=== PATIENT | male | born 1945 | race Caucasian/White ===

== ENCOUNTER 2016-12-06 07:38 | Inpatient (IN) | payer OTHER ==
[~2016-12-06] VITALS: Ht 160 cm; Wt 87.7 kg
[~2016-12-06 07:38] MED LIST: AMITRIPTYLINE H10 MG; AMITRIPTYLINE H25 MG PO; APAP/HYDROCODON1 T13 PO; BACTRIM DS1 TAB PO; BENADRYL ALLERG25 M1 PO; CARBAMAZEPINE100 MG PO; CIPRO500 MG PO; CLINDAMYCIN HC300 MG PO; COL100 PO; COL250 PO; COLACE100 MG PO; FLA500 PO; FLO4 PO; GAS RELIEF40 MG/0.6 PO; LAC PO; LACTULOSE10 GM/152 PO; LEVAQUIN750 MG/150 IV; LOMOTIL1 TAB PO; NORCO1 TA2 PO; PRI20 PO; TYLENOL EXTRA500 M2 PO; VAN1PM IV; XANAX0.5 MG PO; ZOLOFT25 MG PO
[2016-12-06 08:20] LABS: PLATELET COUNT 261 x10^3mcL (130-400); RED CELL DISTRIBUTION WIDTH 13.3 % (11.5-14.5)
--- NOTE | 2016-12-06 08:40 | NUR ---
PT PRESENTS TO THE ED WITH THE COMPLAINT OF N/V HIS PRIMARY COMPLAINT. THE PT REPORTS TAKING MULTIPLE TYLENOL PILLS TO HELP HIS PAIN. THE PT REPORTS TAKING 5 TABS YESTERDAY AT 1700, 4 TABS AT 2100, 4 TABS TODAY AT 0200, AND 4 TABS AT 0500. ALL THE TABS WERE 500 MG. POISON CONTROL CALLED.
[2016-12-06 08:42] LABS: CALCIUM 8.9 mg/dL (8.5-10.1); CARBON DIOXIDE 25.9 mmol/L (21-32); CHLORIDE SERUM 103 mmol/L (98-107); CREATININE SERUM 0.9 mg/dL (0.7-1.3); GFR1 > 60 mL/min; GLUCOSE SERUM 122 mg/dL (74-106); POTASSIUM SERUM 3.3 mmol/L (3.5-5.1); SODIUM SERUM 139 mmol/L (136-145)
[2016-12-06 08:46] LABS: ALBUMIN 4.1 g/dL (3.4-5.0); ALKALINE PHOSPHATASE 73 U/L (46-116); ALT/SGPT 37 U/L (16-63); AST/SGOT 22 U/L (15-37); BILIRUBIN TOTAL 0.52 mg/dL (0.20-1.00); TOTAL PROTEIN, SERUM 7.6 g/dL (6.4-8.2)
--- NOTE | 2016-12-06 09:07 | NUR ---
PT AMBULATED TO AND FROM THE RESTROOM WITH STEADY GAIT TO PROVIDED ORDERED URINE SPECIMEN.
[2016-12-06 09:27] LABS: microscopic required? YES; urine erythrocyte NEGATIVE (NEGATIVE)
--- NOTE | 2016-12-06 10:17 | NUR ---
PT REMAINS RESTING IN A POSITION OF COMFORT IN LOW POSITIONED BED WITH SIDE RAILS UP X 2 AND CALL LIGHT WITHIN REACH.
[2016-12-06 10:39] LABS: BAND NEUTROPHIL 0 % (0-10); BASOPHIL 0 % (0-2); MONOCYTE 6 % (0-7); SEGMENTED NEUTROPHILS 86 % (37-75)
[2016-12-06 10:41] LABS: PLATELET MORPHOLOGY PLATELETS NORMAL
--- NOTE | 2016-12-06 12:03 | NUR ---
REPORT CALLED TO CONSTANTINE BRIONES TO ASSUME CARE FOR THIS PT POST TRAMSFER FROM ED TO TELE UNIT.
[2016-12-06] MEDS ORDERED: TEGRETOL200 MG PO (12:50)
[2016-12-06] MEDS ORDERED: HYDROXYZINE HYD25 MG PO (12:50)
[2016-12-06 13:04] LABS: CHOLESTEROL/HDL RATIO 2.8
[2016-12-06 13:05] LABS: T3 TOTAL 0.96 ng/mL
[2016-12-06 13:12] LABS: FREE T4 0.93 ng/dL (0.76-1.46); FREE THYROXINE INDEX 2.4 ug/dL (1.4-4.5); T4(THYROXINE) 7.3 ug/dL (4.7-13.3)
--- NOTE | 2016-12-06 13:15 | NUR ---
Received patient from ED via gurney, patient walking to bed with steady gait, oriented patient to call light system, pain is 5/10 to bilateral legs; noted bilateral lateral thigh bleeding from wound site; updated POC.
[2016-12-06 14:12] VITALS: BP 139/77
--- NOTE | 2016-12-06 15:52 | NUR ---
PATIENT LAYING IN BED TECH AT BEDSIDE PREFORM XR TO BILAT THIGH. ZOFRAN 4MG IVP GIVEN. NEEDS ANTICIPATED.
--- NOTE | 2016-12-06 18:08 | NUR ---
PATIENT SIT AT THE SIDE OF BED EATING HIS DINNER NO COMPLAINT, PAIN IS LIKE 4/10 TO RT THIGH; DUE MEDS GIVEN. NEEDS ANTICIPATED.
[2016-12-06 18:12] VITALS: BP 114/87
--- NOTE | 2016-12-06 18:35 | NUR ---
MEDICATED PATIENT FOR RT THIGH 6/10 PAIN WITH MORPHINE 2MG IVP, COLLECT URINE FOR USD. NEEDS ANTICIPATED.
--- NOTE | 2016-12-06 19:10 | NUR ---
PATIENT RECEIVED AWAKE, ALERT, AND ORIENTED X 4. NO DISTRESS NOTED. NO C/O PAIN AT THIS TIME. IV SITE TO LEFT HAND, PATENT AND INTACT. IV FLUID INFUSING PER DOCTOR'S ORDER. BED IN LOWEST POSITION. CALL LIGHT WITHIN REACH. WILL CONTINUE TO MONITOR.
--- NOTE | 2016-12-06 19:30 | NUR ---
LEFT OUTER THIGH AND RIGHT OUTER THIGH WOUND CULTURE SENT.
[2016-12-06 21:14] VITALS: BP 129/73
[2016-12-06 21:46] LABS: AMPHETAMINE QUAL UR NONE DETECTED (NEG <=1000)
--- NOTE | 2016-12-07 05:00 | NUR ---
PATIENT RESTED THROUGHOUT THE NIGHT. NO DISTRESS NOTED. NO C/O PAIN. SAFETY AND COMFORT MEASURES MAINTAINED. BED IN LOWEST POSITION. CALL LIGHT WITHIN REACH. WILL CONTINUE TO MONITOR AND ENDORSE TO MORNING SHIFT NURSE.
[2016-12-07 06:30] VITALS: BP 140/77
[2016-12-07 07:01] LABS: BASOPHIL % 0.3 % (0-2); PLATELET COUNT 246 x10^3mcL (130-400); RED CELL DISTRIBUTION WIDTH 13.3 % (11.5-14.5)
[2016-12-07 07:14] LABS: CALCIUM 7.9 mg/dL (8.5-10.1); CARBON DIOXIDE 26.3 mmol/L (21-32); CHLORIDE SERUM 105 mmol/L (98-107); GFR1 > 60 mL/min; GLUCOSE SERUM 103 mg/dL (74-106); MAGNESIUM 1.7 mg/dL (1.8-2.4); PHOSPHOROUS 2.6 mg/dL (2.5-4.9); POTASSIUM SERUM 3.3 mmol/L (3.5-5.1); SODIUM SERUM 140 mmol/L (136-145)
--- NOTE | 2016-12-07 07:25 | NUR ---
Received patient remain asleep awake easily, denies pain, IV intact, bilat lateral thigh with dressing C/D/I; POC updated. Needs anticipated.
[2016-12-07 09:26] VITALS: BP 148/80
--- NOTE | 2016-12-07 09:45 | NUR ---
PATIENT REMAIN UP IN CHAIR, MEDICATED FOR 6/10 THIGH PAIN WITH NORCO 1 TAB PO, AND DUE MEDS GIVEN. NEEDS ANTICIPATED.
--- NOTE | 2016-12-07 10:30 | NUR ---
Patient remain sit in chair no complaints, hibiclens wash to bilateral legs and bactroban ointment to effected area. Consent for incision and drainage of abscess to left thigh and right thigh sign by patient no further questions. Needs anticipated. Update patient plan for surgery tomorrow.
--- NOTE | 2016-12-07 11:21 | NUR ---
Call Dr. Soliz clarify order for incision and drainage of abscess; per Dr. Soliz will be done tomorrow with Dr. Manjit FONTANEZ cancelled today.
--- NOTE | 2016-12-07 11:25 | NUR ---
KCL 20MEQ PO AND MAGOX 1 TAB PO GIVEN ORDERED FOR K 3.3 AND MG 1.7; PATIENT REMAIN UP IN CHAIR NO COMPLAINTS.
--- NOTE | 2016-12-07 12:47 | NUR ---
PATIENT UP IN CHAIR EATING HIS LUNCH, NO COMPLAINTS. DUE MEDS GIVEN. NEEDS ATTENDED. CONT TO MONITOR.
[2016-12-07 13:01] VITALS: BP 134/73
--- NOTE | 2016-12-07 14:52 | NUR ---
structural engineering technician call inform wound culture of left and right thigh (+) MRSA. Will notified
--- NOTE | 2016-12-07 15:26 | NUR ---
CARE ENDORSE TO [facility]AB[facility]CH TO RESUME CARE.
--- NOTE | 2016-12-07 15:30 | NUR ---
RECEIVED REPORT FROM ANALI FITCH, WILL ASUME CARE OF PATIENT.
--- NOTE | 2016-12-07 16:12 | NUR ---
BLOOD INFUSION STARTED, CHECKED BLOOD WITH RN SURU, VSS, LING RN USED FOR TRANSLATION OF SYMPTOMS, WILL REMAIN AT BEDSIDE TO ASSESS.
--- NOTE | 2016-12-07 16:43 | NUR ---
PT ASLEEP, NO INDICATION OF PAIN, BREATHING EVEN AND UNLABORED, CALL LIGHT WITHIN REACH, WILL CONTINUE TO MONITOR.
--- NOTE | 2016-12-07 16:51 | NUR ---
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 Alejandre (January 2016) Labs: K 3.3 L, BG 103, Magnesium 1.7 L; (12/07) WBC 11.4 H, H/H 12.2/37 L; (12/06) LDL 102 H, A1C 5.6 Meds: Colace, lactinex, NS IV, zofran Current Diet Order: Cardiac PO Intakes: (12/07) B: 10%, L: 100% Ht: 63", 5' 3". Wt: 191 lb, 87 kg. BMI: 34.3 kg/m2 (Obesity Class I) IBW: 124 lb, 56 kg. %IBW: 155%. Adj BW: 141 lb, 64 kg. UBW: 189 lb, 86 kg. Wt Hx: (11/28/15) 180 lb, 82 kg. Age: 71 Y/O M Food Allergies: None; Reported intolerance to milk, ice-cream, orange juice, grape juice Skin: Round open wounds to bilateral thighs, bloody in appearance, minimal drainage. Migel 20. Edema: None GI: Active bowel sounds. Last BM 12/06. Nursing Trigger: Nausea, Vomiting, Diarrhea >3 days. 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 Per doctor's progress note 12/07, bedside I&D will be performed today and culture of abscess sent to lab for culture and sensitivity, US soft tissue shows hematoma vs abscess. Per nursing notes, wound culture of L and R thigh positive MRSA, I&D will be done by Dr. Alejandre 12/08. Pt was sound asleep and snoring during RD visit, unable to participate in RD verbal interview. Pt appears overly-nourished, consistent with documented anthropometrics. Noted pt with good PO intakes for lunch meal. RD to obtain food preferences at F/U visit. Estimated Nutritional Needs Based IBW 124 lb, 56 kg Energy: 9782-4166 kcal/day (25-30 kcal/kg for Maintenance) Protein: 67-84 gm/day (1.2-1.5 gm/kg for Infection) Fluids: 1680 ml/day (30 ml/kg for Maintenance) or per doctor Nutrition Diagnosis Increase protein needs related to altered skin integrity as evidenced by bilateral thigh cellulitis secondary to MRSA infection, bedside I&D 12/08 Intervention 1. Continue Cardiac diet per doctor. Monitor/Evaluate Goal: PO intakes to meet >75% of estimated needs with tolerance Monitor: PO intakes, tolerance to diet, labs, skin integrity, GI function, weights F/U in 3-5 days as MODERATE risk (12/10-12/12)
--- NOTE | 2016-12-07 17:37 | NUR ---
PT DENIES SOB, C/O RLE PAIN 12/01, WILL MEDICATE PER EMAR, CALL LIGHT WITHIN REACH, EATING DINNER, WILL CONTINUE TO MONITOR.
[2016-12-07 17:50] VITALS: BP 125/55
--- NOTE | 2016-12-07 18:02 | NUR ---
PT MEDICATED FOR RLE PAIN 12/01, DENIES SOB, CALL LIGHT WITHIN REACH, WILL CONTINUE TO MONITOR.
--- NOTE | 2016-12-07 19:10 | NUR ---
REC'D PT RESTING IN BED. PT IS AAOX4. TELE #22 SR. DENIES PAIN OR DISCOMFORT. LUNG SOUNDS CLEAR. NO SOB NOTED. BS ACTIVE X4. WOUNDS NOTED TO NADIA. THIGHS, CUPOLA PATCHER. IV FLUID INFUSING TO LH PER DOCTOR'S ORDER. INTACT AND PATENT. SAFETY AND COMFORT MEASURES IN PLACE. CONTACT PRECAUTION IN PLACE FOR + MRSA WOUND. BED IN LOWEST POSITION. CALL LIGHT WITHIN REACH. WILL CONTINUE TO MONITOR.
[2016-12-07 21:29] VITALS: BP 123/67
--- NOTE | 2016-12-07 23:15 | NUR ---
PATIENT REQUESTED SLEEPING MEDICATION. RESTORIL WAS GIVEN ORDERED (SEE MAR).
--- NOTE | 2016-12-08 05:06 | NUR ---
PATIENT RESTING IN BED. NO DISTRESS NOTED. IV FLUID INFUSING WELL. CALL LIGHT WITHIN REACH. WILL CONTINUE TO MONITOR.
[2016-12-08 06:03] LABS: BASOPHIL % 0.3 % (0-2); PLATELET COUNT 233 x10^3mcL (130-400); RED CELL DISTRIBUTION WIDTH 13.2 % (11.5-14.5)
[2016-12-08 06:24] VITALS: BP 129/68
[2016-12-08 06:29] LABS: CALCIUM 7.9 mg/dL (8.5-10.1); CARBON DIOXIDE 25.9 mmol/L (21-32); CHLORIDE SERUM 106 mmol/L (98-107); GFR1 > 60 mL/min; GLUCOSE SERUM 102 mg/dL (74-106); MAGNESIUM 1.7 mg/dL (1.8-2.4); POTASSIUM SERUM 3.5 mmol/L (3.5-5.1); SODIUM SERUM 141 mmol/L (136-145)
--- NOTE | 2016-12-08 06:56 | NUR ---
REPORT GIVEN TO MARIOLA FROM OR. ALL QUESTIONS AND CONCERNS ADDRESSED.
--- NOTE | 2016-12-08 07:45 | NUR ---
RECEIVED THE PATIENT ALERT AND ORIENTED TO PERSON, PLACE AND TIME. PATIENT STATED HAVING MILD ACHING TO BOTH THIGH CELLULITIS. IVF NS VIA H/L TO LEFT HAND. TELE # 22 READS SINUS RHYTHMS. CALL LIGHT WITHIN REACH.S SIDE RAILS UP X3. BED WAS AT LOWEST POSITION AND ALARM WAS ON.
--- NOTE | 2016-12-08 08:20 | NUR ---
THE PATIENT WAS TAKEN TO OR FOR I&D BOTH THIGH CELLULITIS.
[2016-12-08 11:20] VITALS: BP 123/70
--- NOTE | 2016-12-08 12:15 | NUR ---
RECEIVED THE PATIENT BACK FROM RECOVERY ROOM S/P I&D BOTH THIGH CELLULITIS. THE PATIENT ALERT AND ORIENTED TO PERSON, PLACE AND TIME. PATIENT STATED HAVING MILD PAIN TO THE SURGICAL SITES TO BOTH THIGHS BUT TOLERATED THE PAIN AND DID NOT NEED PAIN MED. VS CHECKED. CALL LIGHT WITHIN REACH. SIDE RAILS UP X3. I.S DEVICE PROVIDED TO THE PATIENT.
[2016-12-08 14:04] VITALS: BP 108/66
[2016-12-08 18:21] VITALS: BP 104/71
--- NOTE | 2016-12-08 18:49 | NUR ---
THE PATIENT GOT OUT OF BED; USED BRP AND SAT IN CHAIR SEVERAL TIMES S/P I& D OF NADIA THIGH CELULLITIS.
--- NOTE | 2016-12-08 19:10 | NUR ---
REC'D PT RESTING IN BED. PT IS AAOX4. TELE #23 SR. LUNG SOUNDS CLEAR. NO SOB NOTED. SWELLING NOTED TO BILATERAL THIGHS. PT S/P I&D OF BILATERAL THIGH WOUNDS TODAY. DRESSING CDI. PT COMPLAIN OF 5/10 NADIA. THIGH PAIN. WILL MEDICATE. IV FLUID INFUSING TO LH PER DOCTOR'S ORDER. INTACT AND PATENT. SAFETY AND COMFORT MEASURES IN PLACE. BED IN LOWEST POSITION. CALL LIGHT WITHIN REACH. WILL CONTINUE TO MONITOR.
--- NOTE | 2016-12-08 19:16 | NUR ---
MEDICATED PT WITH NORCO FOR 5/10 BILATERAL THIGH PAIN (SEE MAR).
--- NOTE | 2016-12-08 19:25 | NUR ---
TELE DC'D ORDERED.
[2016-12-08 21:13] VITALS: BP 113/65
[2016-12-09 05:16] VITALS: BP 116/68
[2016-12-09 05:56] LABS: BASOPHIL % 0.2 % (0-2); PLATELET COUNT 254 x10^3mcL (130-400); RED CELL DISTRIBUTION WIDTH 13.6 % (11.5-14.5)
--- NOTE | 2016-12-09 07:50 | NUR ---
RESUME CARE: PATIENT ALERT AND ORIENTED TO PERSON, PLACE AND TIME. DENIED SHORTNESS OF BREATH OR NAUSEA/VOMITING. PATIENT STATED HAVING MILD ACHING TO BOTH THIGHS AT THE WOUND SITES, BUT TOLERATED THE PAIN WITHOUT PAIN MEDS. BOTH SITES WITH DRESSING INTACT. IVF NS VIA H/L TO LEFT HAND. CALL LIGHT WITHIN REACH. SIDE RAILS UP X3.
--- NOTE | 2016-12-09 09:19 | NUR ---
DR. FREED AND THE TEAM WERE MAKING ROUND TO SEE THE PATIENT. THE CARE PLAN WAS EXPLAINED TO THE PATIENT IN [place] VIA THE ROLLING MACHINE TENDER, ONE OF A MEDICAL STAFF; THE PATIENT VERBALIZED UNDERSTANDING.
[2016-12-09 10:09] VITALS: BP 128/78
--- NOTE | 2016-12-09 11:30 | NUR ---
PER DR. ROSALES-RESIDENT, REMOVE THE PACKING IN THE THIGH WOUNDS, CLEANSE THE WOUNDS AND APPLY THE BACTROBAN CREAM BEFORE APPLYING THE DRESSING. THESE STEPS ABOVE WERE IMPLEMENTED DURING DRESSING CHANGE TODAY AND INSTRUCTED TO THE , JAXON RIGGS AT BEDSIDE.
--- NOTE | 2016-12-09 14:27 | NUR ---
RECEIVED A PHONE CALL FROM [employer] SAYING THAT THE PATIENT'S WOUND CULTURE SHOWS MRSA. THE PATIENT WAS ON CONTACT ISOLATION DUE TO MRSA FROM THE WOUNDS AND HAVING HIBICLENS AND BACTROBAN FOR THAT. CONTINUE TREATMENT.
[2016-12-09 18:05] VITALS: BP 126/89
--- NOTE | 2016-12-09 18:55 | NUR ---
PATIENT AMBULATED AND SITTING IN CHAIR MORE TIME THAN IN THE BED DURING THE SHIFT. CONTACT ISOLATION MAINTAINED.
--- NOTE | 2016-12-09 19:25 | NUR ---
RECEIVED PT SITTING ON THE CHAIR, HE IS ALERT,ORIENTED X4. NO SOB ON RA. PT W/ DRESSINGS TO LT AND RT OUTER THIGHS INTACT. W/ SMALL AMOUNT OF SS DRAINAGE NOTED. HE HAS NO C/O PAIN. CALL LIGHT W/IN REACH.
[2016-12-09 20:35] VITALS: BP 146/76
--- NOTE | 2016-12-09 21:35 | NUR ---
PT REQUESTING FOR SLEEPING PILL. RESTORIL 15 MG PO GIVEN.
--- NOTE | 2016-12-09 22:35 | NUR ---
PT APPEARS TO BE SLEEPING COMFORTABLY AFTER RESTORIL WAS GIVEN.
--- NOTE | 2016-12-10 05:00 | NUR ---
DRESSING TO RT AND LT THIGH ABSCESS CHANGED.
--- NOTE | 2016-12-10 05:30 | NUR ---
PT SLEPT THROUGH THE NIGHT. HE HAD NO C/O PAIN. DRESSINGS TO RT AND LT THIGH ABSCESS INTACT. PT ABLE TO AMBULATE W/ STEADY GAIT. CONTACT ISOLATION MAINTAINED.
[2016-12-10 05:35] VITALS: BP 135/69
--- NOTE | 2016-12-10 06:40 | NUR ---
PT MEDICATED W/ ZOFRAN 4 MG IV FOR C/O NAUSEA. NO VOMITING NOTED.
--- NOTE | 2016-12-10 07:15 | NUR ---
RECEIVED Pt. AAOX4 RESPIRATIONS EVEN AND UNLABORED. DENIES PAIN/DISCOMFORT AT THIS TIME. NO DISTRESS NOTED. IVF RUNNING TO IV AT LEFT HAND PATENT AND INTACT. BILATERAL OUTER THIGH DSG CDI. BED LOW/LOCKED. CALL LIGHT IN REACH.
--- NOTE | 2016-12-10 11:28 | NUR ---
DR. ROSALES NOTIFIED OF FINAL TISSUE CULTURE RESULTS.
[2016-12-10 13:33] VITALS: BP 142/73
[2016-12-10] MEDS ORDERED: APAP/HYDROCODON1 T13 PO (13:41)
[2016-12-10] MEDS ORDERED: BACDS PO (13:42)
[2016-12-10] MEDS ORDERED: LAC PO (13:45)
[2016-12-10] MEDS ORDERED: LEVAQUIN750 MG PO (13:45)
[2016-12-10] MEDS ORDERED: HIBICLENS118 ML TOP (13:48)
[2016-12-10] MEDS ORDERED: BACO TOP (13:49)
[2016-12-10] MEDS ORDERED: MOT800 PO (13:50)
[2016-12-10] MEDS ORDERED: COLACE100 MG PO (14:03)
[2016-12-10 14:23] VITALS: BP 142/73
--- NOTE | 2016-12-10 15:00 | NUR ---
Pt. REMAINS AAOX4. RESPIRATIONS EVEN AND UNLABORED. DENIES PAIN/DISCOMFORT AT THIS TIME. NO DISTRESS NOTED. ALL RX, DISCHARGE AND WOUND CARE INSTRUCTIONS, AND FOLLOW UP MD APPOINTMENTS EXPLAINED TO Pt. AND Pt. AND VERBALIZED UNDERSTANDING. PHOTO TAKEN OF BILATERAL OUTER THIGH WOUNDS AND DSG CHANGED CDI. IV AT LEFT HAND REMOVED WITH CATH INTACT. Pt. LEFT WITH ALL BELONGINGS AND WOUND CARE SUPPLIES.
== END 2016-12-10 15:05 | disposition home health service (06) | DRG 602 ==
LOC: ED 07:38 → DU 11:37 → MU 11:37 → DU 13:20 → MU 12-08 21:44
PROVIDERS: Emergency Medicine; Family Medicine; ADMIT Family Medicine
PROC: 0H9KXZZ Drainage of Right Lower Leg Skin, External Approach (ICD-10-PCS; principal; 2016-12-06)
PROC: 0H9LXZZ Drainage of Left Lower Leg Skin, External Approach (ICD-10-PCS; 2016-12-06)
DX: L02.436 Carbuncle of left lower limb (principal); N17.0 Acute kidney failure with tubular necrosis; L03.116 Cellulitis of left lower limb; L03.115 Cellulitis of right lower limb; L02.435 Carbuncle of right lower limb; B95.62 Methicillin resistant Staphylococcus aureus infection as the cause of diseases classified elsewhere; I10 Essential (primary) hypertension; E87.6 Hypokalemia; K42.9 Umbilical hernia without obstruction or gangrene; G50.0 Trigeminal neuralgia; M17.0 Bilateral primary osteoarthritis of knee; N40.0 Benign prostatic hyperplasia without lower urinary tract symptoms; Z68.32 Body mass index [BMI] 32.0-32.9, adult; Z86.14 Personal history of Methicillin resistant Staphylococcus aureus infection
CPT/HCPCS: 80307; 83880; 84439; 94150; G0480; J1956; J2001; J2175; J2250; J2270; J2405; J3010; J3490; J7030; Q0092; Q0163

== ENCOUNTER 2017-01-19 18:16 | Emergency (ER) | payer OTHER ==
[~2017-01-19] VITALS: Ht 160 cm; Wt 88.6 kg
[~2017-01-19 18:16] MED LIST changes: +BACDS PO; +BACO TOP; +HIBICLENS118 ML TOP; +HYDROXYZINE HYD25 MG PO; +LEVAQUIN750 MG PO; +MOT800 PO; +TEGRETOL200 MG PO
[2017-01-19 20:51] LABS: BASOPHIL % 0.5 % (0-2); PLATELET COUNT 248 x10^3mcL (130-400); RED CELL DISTRIBUTION WIDTH 14.2 % (11.5-14.5)
[2017-01-19 20:57] LABS: CALCIUM 9.1 mg/dL (8.5-10.1); CARBON DIOXIDE 24.9 mmol/L (21-32); CHLORIDE SERUM 104 mmol/L (98-107); CREATININE SERUM 1.1 mg/dL (0.7-1.3); GFR1 > 60 mL/min; GLUCOSE SERUM 106 mg/dL (74-106); POTASSIUM SERUM 3.6 mmol/L (3.5-5.1); SODIUM SERUM 139 mmol/L (136-145)
[2017-01-19 21:02] LABS: ALBUMIN 4.4 g/dL (3.4-5.0); ALKALINE PHOSPHATASE 60 U/L (46-116); ALT/SGPT 27 U/L (16-63); AST/SGOT 17 U/L (15-37); BILIRUBIN TOTAL 0.3 mg/dL (0.20-1.00); HDL CHOLESTEROL 53 mg/dL (40-60); PHOSPHOROUS 3.8 mg/dL (2.5-4.9); TOTAL PROTEIN, SERUM 7.6 g/dL (6.4-8.2); URIC ACID 4.2 mg/dL (3.5-7.2)
[2017-01-19 21:04] LABS: CHOLESTEROL 222 mg/dL (<200)
[2017-01-20 00:24] VITALS: BP 138/84
== END 2017-01-20 00:41 | disposition home or self-care (01) ==
LOC: ED 18:16
PROVIDERS: Emergency Medicine
DX: G50.0 Trigeminal neuralgia (principal); I10 Essential (primary) hypertension; Z79.899 Other long term (current) drug therapy; Z91.013 Allergy to seafood
CPT/HCPCS: 83880; J1170; J2405; Q0092

== ENCOUNTER 2017-02-14 09:14 | Emergency (ER) | payer OTHER ==
[2017-02-14 09:59] VITALS: BP 143/118
== END 2017-02-14 09:59 | disposition home or self-care (01) ==
LOC: ED 09:14
DX: G50.0 Trigeminal neuralgia (principal); I10 Essential (primary) hypertension; Z86.59 Personal history of other mental and behavioral disorders

== ENCOUNTER 2017-04-03 10:35 | Emergency (ER) | payer OTHER ==
[~2017-04-03] VITALS: Ht 157.5 cm; Wt 87.5 kg
[2017-04-03 11:45] VITALS: BP 156/88
== END 2017-04-03 11:45 | disposition home or self-care (01) ==
LOC: ED 10:35
DX: G50.0 Trigeminal neuralgia (principal); R03.0 Elevated blood-pressure reading, without diagnosis of hypertension; I10 Essential (primary) hypertension; F32.9 Major depressive disorder, single episode, unspecified; N40.0 Benign prostatic hyperplasia without lower urinary tract symptoms; F41.9 Anxiety disorder, unspecified
CPT/HCPCS: J1885

== ENCOUNTER 2017-04-11 05:49 | Day surgery (SDC) | payer OTHER ==
[~2017-04-11] VITALS: Ht 160 cm; Wt 87.5 kg
[2017-04-11 06:10] VITALS: BP 137/71
[2017-04-11 13:46] VITALS: BP 122/74
== END 2017-04-11 13:40 | disposition home or self-care (01) ==
LOC: DS 05:49 → OR 07:30 → DS 13:40
PROVIDERS: Surgery
PROC: 0WUF0JZ Supplement Abdominal Wall with Synthetic Substitute, Open Approach (ICD-10-PCS; principal; 2017-04-11 07:30)
DX: K42.9 Umbilical hernia without obstruction or gangrene (principal); Z68.33 Body mass index [BMI] 33.0-33.9, adult
CPT/HCPCS: C1781; J0330; J0690; J1170; J2175; J2250; J2405; J2704; J2710; J3010; J3490; J7120

== ENCOUNTER 2017-06-17 11:19 | Emergency (ER) | payer OTHER ==
[~2017-06-17] VITALS: Ht 152.4 cm; Wt 86.2 kg
[2017-06-17 13:01] LABS: UA SPECIFIC GRAVITY 1.015 (1.005-1.035); microscopic required? YES; urine erythrocyte NEGATIVE (NEGATIVE)
[2017-06-17 13:03] LABS: CALCIUM 8.8 mg/dL (8.5-10.1); CHLORIDE SERUM 102 mmol/L (98-107); GFR1 > 60 mL/min; GLUCOSE SERUM 105 mg/dL (74-106); POTASSIUM SERUM 3.5 mmol/L (3.5-5.1); SODIUM SERUM 138 mmol/L (136-145)
[2017-06-17 13:08] LABS: ALBUMIN 3.9 g/dL (3.4-5.0); ALKALINE PHOSPHATASE 65 U/L (46-116); ALT/SGPT 17 U/L (16-63); AST/SGOT 12 U/L (15-37); BILIRUBIN TOTAL 0.4 mg/dL (0.20-1.00); TOTAL PROTEIN, SERUM 7.6 g/dL (6.4-8.2)
[2017-06-17 13:29] LABS: BASOPHIL % 0.8 % (0-2); PLATELET COUNT 239 x10^3mcL (130-400); RED CELL DISTRIBUTION WIDTH 13.8 % (11.5-14.5)
[2017-06-17] MEDS ORDERED: NEU300 PO (13:33)
[2017-06-17 14:00] LABS: CK-MB 0.8 ng/mL (0-3.6)
[2017-06-17 14:02] VITALS: BP 143/61
== END 2017-06-17 14:10 | disposition short-term general hospital (02) ==
LOC: ED 11:19
PROVIDERS: Emergency Medicine
DX: S06.5X9A Traumatic subdural hemorrhage with loss of consciousness of unspecified duration, initial encounter (principal); I10 Essential (primary) hypertension; W17.89XA Other fall from one level to another, initial encounter; Y93.89 Activity, other specified; Y99.8 Other external cause status; Y92.89 Other specified places as the place of occurrence of the external cause
CPT/HCPCS: 83880; J2405; J7030

== ENCOUNTER 2017-07-25 00:39 | Inpatient (IN) | payer OTHER ==
[~2017-07-25] VITALS: Ht 160 cm; Wt 85.4 kg
[~2017-07-25 00:39] MED LIST changes: +NEU300 PO
[2017-07-25 01:38] VITALS: Ht 160 cm; Wt 85.4 kg
[2017-07-25 05:42] LABS: BASOPHIL % 0.3 % (0-2); PLATELET COUNT 264 x10^3mcL (130-400)
[2017-07-25 05:50] LABS: CALCIUM 10.1 mg/dL (8.5-10.1); CARBON DIOXIDE 30.4 mmol/L (21-32); CHLORIDE SERUM 94 mmol/L (98-107); CREATININE SERUM 1.2 mg/dL (0.7-1.3); GFR1 > 60 mL/min; GLUCOSE SERUM 137 mg/dL (74-106); POTASSIUM SERUM 4.1 mmol/L (3.5-5.1); SODIUM SERUM 139 mmol/L (136-145)
[2017-07-25 05:52] LABS: ALBUMIN 4.3 g/dL (3.4-5.0); ALKALINE PHOSPHATASE 55 U/L (46-116); ALT/SGPT 33 U/L (16-63); AST/SGOT 15 U/L (15-37); LIPASE 134 IU/L (73-393); TOTAL PROTEIN, SERUM 7.7 g/dL (6.4-8.2)
[2017-07-25 05:54] LABS: RED CELL DISTRIBUTION WIDTH 14.7 % (11.5-14.5)
[2017-07-25] MEDS ORDERED: TEGRETOL200 MG PO (07:07)
[2017-07-25] MEDS ORDERED: BACLOFEN10 MG PO (07:08)
[2017-07-25] MEDS ORDERED: TAMSULOSIN HCL0.4 MG PO (07:08)
[2017-07-25] MEDS ORDERED: KEPPRA500 MG PO (07:09)
[2017-07-25] MEDS ORDERED: HYDROXYZINE HYD50 MG PO (07:09)
[2017-07-25] MEDS ORDERED: NEU300 PO (07:10)
[2017-07-25] MEDS ORDERED: ACETAMINOPHEN &1 TA1 PO (07:10)
[2017-07-25] MEDS ORDERED: DEXAMETHASONE4 MG PO (07:10)
[2017-07-25] MEDS ORDERED: TEGRETOL200 MG (07:11)
[2017-07-25 08:02] LABS: MAGNESIUM 2.6 mg/dL (1.8-2.4); PHOSPHOROUS 5.1 mg/dL (2.5-4.9)
[2017-07-25 08:08] LABS: T3 TOTAL 0.85 ng/mL
[2017-07-25 08:12] LABS: CHOLESTEROL/HDL RATIO 2.5
[2017-07-25 08:15] LABS: FREE T4 0.83 ng/dL (0.76-1.46); FREE THYROXINE INDEX 2.3 ug/dL (1.4-4.5); T4(THYROXINE) 6.7 ug/dL (4.7-13.3)
[2017-07-25 10:00] VITALS: BP 163/82
[2017-07-25] MEDS ORDERED: ATIVAN0.5 M1 PO (10:58)
[2017-07-25 17:43] VITALS: BP 150/80
[2017-07-25 17:50] VITALS: BP 118/70
[2017-07-25 21:07] LABS: PLATELET COUNT 241 x10^3mcL (130-400)
[2017-07-25 21:30] LABS: RED CELL DISTRIBUTION WIDTH 14.8 % (11.5-14.5)
[2017-07-25 21:39] LABS: BAND NEUTROPHIL 6 % (0-10); BASOPHIL 0 % (0-2); METAMYELOCTE 1 % (0-2); MONOCYTE 7 % (0-7); SEGMENTED NEUTROPHILS 84 % (37-75)
[2017-07-25 21:42] LABS: rbc morphology (normal/abnorm) ABNORMAL (NORMAL)
[2017-07-25 22:03] VITALS: BP 113/59
[2017-07-26 05:14] VITALS: BP 98/59
[2017-07-26 06:47] LABS: BASOPHIL % 0.1 % (0-2); PLATELET COUNT 203 x10^3mcL (130-400)
[2017-07-26 06:50] LABS: CARBON DIOXIDE 30.6 mmol/L (21-32); CHLORIDE SERUM 103 mmol/L (98-107); CREATININE SERUM 1.2 mg/dL (0.7-1.3); GFR1 > 60 mL/min; GLUCOSE SERUM 111 mg/dL (74-106); MAGNESIUM 2.5 mg/dL (1.8-2.4); PHOSPHOROUS 4.4 mg/dL (2.5-4.9); SODIUM SERUM 140 mmol/L (136-145)
[2017-07-26 07:09] LABS: RED CELL DISTRIBUTION WIDTH 14.8 % (11.5-14.5)
[2017-07-26 09:16] VITALS: BP 115/64
[2017-07-26 16:44] VITALS: BP 111/63
[2017-07-26 21:42] VITALS: BP 126/56
[2017-07-27 00:32] LABS: UA SPECIFIC GRAVITY 1.025 (1.005-1.035); microscopic required? YES; urine erythrocyte 1+ (NEGATIVE)
[2017-07-27 00:39] LABS: AMPHETAMINE QUAL UR NONE DETECTED (NEG <=1000)
[2017-07-27 05:38] VITALS: BP 96/51
[2017-07-27 06:31] LABS: BASOPHIL % 0.1 % (0-2); PLATELET COUNT 173 x10^3mcL (130-400); RED CELL DISTRIBUTION WIDTH 14.3 % (11.5-14.5)
[2017-07-27 06:46] LABS: CALCIUM 7.6 mg/dL (8.5-10.1); CARBON DIOXIDE 30.1 mmol/L (21-32); CHLORIDE SERUM 104 mmol/L (98-107); GFR1 > 60 mL/min; GLUCOSE SERUM 105 mg/dL (74-106); MAGNESIUM 2.3 mg/dL (1.8-2.4); PHOSPHOROUS 3.2 mg/dL (2.5-4.9); SODIUM SERUM 141 mmol/L (136-145)
[2017-07-27 09:22] VITALS: BP 131/59
[2017-07-27] MEDS ORDERED: MOT800 PO (11:13)
[2017-07-27] MEDS ORDERED: ATORVASTATIN CA40 M1 PO (11:18)
[2017-07-27] MEDS ORDERED: APAP/HYDROCODON1 T13 PO (11:19)
[2017-07-27 11:20] VITALS: BP 131/59
[2017-07-27] MEDS ORDERED: ESGIC CAPSULE1 EACH PO (11:20)
[2017-07-27] MEDS ORDERED: COL100 PO (11:21)
[2017-07-27 13:14] VITALS: BP 160/97
[2017-07-27 15:57] VITALS: BP 117/63
== END 2017-07-27 16:55 | disposition home or self-care (01) | DRG 853 ==
LOC: ED 00:39 → DU 06:16
PROVIDERS: Emergency Medicine; Family Medicine; Student in an Organized Health Care Education/Training Program; Surgery
PROC: 0WUF0JZ Supplement Abdominal Wall with Synthetic Substitute, Open Approach (ICD-10-PCS; principal; 2017-07-25 11:00)
DX: A41.9 Sepsis, unspecified organism (principal); N17.0 Acute kidney failure with tubular necrosis; K43.0 Incisional hernia with obstruction, without gangrene; R65.20 Severe sepsis without septic shock; R31.9 Hematuria, unspecified; R73.03 Prediabetes; E78.5 Hyperlipidemia, unspecified; E83.41 Hypermagnesemia; E83.51 Hypocalcemia; E83.39 Other disorders of phosphorus metabolism; G50.0 Trigeminal neuralgia; K80.20 Calculus of gallbladder without cholecystitis without obstruction; N40.0 Benign prostatic hyperplasia without lower urinary tract symptoms; D64.9 Anemia, unspecified; E03.9 Hypothyroidism, unspecified; E87.8 Other disorders of electrolyte and fluid balance, not elsewhere classified; Z86.14 Personal history of Methicillin resistant Staphylococcus aureus infection; I10 Essential (primary) hypertension; Z68.34 Body mass index [BMI] 34.0-34.9, adult
CPT/HCPCS: 83880; 84439; C1781; J0690; J0696; J1170; J1644; J1885; J2175; J2250; J2405; J2543; J2704; J2710; J3010; J3490; J7030; J7120; J8540

== ENCOUNTER 2017-08-10 12:40 | Emergency (ER) | payer OTHER ==
[~2017-08-10] VITALS: Ht 160 cm; Wt 81.2 kg
[~2017-08-10 12:40] MED LIST changes: +ACETAMINOPHEN &1 TA1 PO; +ATIVAN0.5 M1 PO; +ATORVASTATIN CA40 M1 PO; +BACLOFEN10 MG PO; +DEXAMETHASONE4 MG PO; +ESGIC CAPSULE1 EACH PO; +HYDROXYZINE HYD50 MG PO; +KEPPRA500 MG PO; +TAMSULOSIN HCL0.4 MG PO; +TEGRETOL200 MG
[2017-08-10 12:54] VITALS: Ht 160 cm; Wt 81.2 kg
[2017-08-10 14:20] VITALS: BP 141/72
== END 2017-08-10 14:20 | disposition home or self-care (01) ==
LOC: ED 12:40
DX: Z48.01 Encounter for change or removal of surgical wound dressing (principal); I10 Essential (primary) hypertension; G50.0 Trigeminal neuralgia; N40.0 Benign prostatic hyperplasia without lower urinary tract symptoms

== ENCOUNTER 2018-02-23 11:38 | Inpatient (IN) | payer OTHER ==
[~2018-02-23] VITALS: Ht 157.5 cm; Wt 85.3 kg
[2018-02-23 12:14] LABS: PLATELET COUNT 227 x10^3mcL (130-400); RED CELL DISTRIBUTION WIDTH 13.1 % (11.5-14.5)
[2018-02-23 12:39] LABS: CALCIUM 7.7 mg/dL (8.5-10.1); CARBON DIOXIDE 25.2 mmol/L (21-32); CHLORIDE SERUM 102 mmol/L (98-107); GFR1 > 60 mL/min; GLUCOSE SERUM 150 mg/dL (74-106); POTASSIUM SERUM 3.4 mmol/L (3.5-5.1); SODIUM SERUM 139 mmol/L (136-145)
[2018-02-23 12:44] LABS: ALBUMIN 3.9 g/dL (3.4-5.0); ALKALINE PHOSPHATASE 72 U/L (46-116); ALT/SGPT 16 U/L (16-63); AST/SGOT 12 U/L (15-37); BILIRUBIN TOTAL 0.3 mg/dL (0.20-1.00); HDL CHOLESTEROL 48 mg/dL (40-60); TOTAL PROTEIN, SERUM 6.9 g/dL (6.4-8.2)
[2018-02-23 12:46] LABS: CHOLESTEROL 215 mg/dL (<200)
[2018-02-23] MEDS ORDERED: RESTORIL15 MG PO (14:17)
[2018-02-23] MEDS ORDERED: GABAPENTIN600 M1 PO (14:17)
[2018-02-23] MEDS ORDERED: LISINOPRIL10 MG PO (14:18)
[2018-02-23] MEDS ORDERED: PRILOSEC OTC20 M1 PO (14:18)
[2018-02-23] MEDS ORDERED: RANITIDINE HCL150 M1 PO (14:19)
[2018-02-23] MEDS ORDERED: BENADRYL ALLERG25 M1 PO (14:20)
[2018-02-23 15:14] VITALS: BP 149/90
[2018-02-23 15:26] VITALS: Ht 157.5 cm; Wt 85.3 kg
[2018-02-23 21:25] VITALS: BP 129/71
[2018-02-24 05:54] VITALS: BP 108/56
[2018-02-24 08:12] LABS: BASOPHIL % 0.3 % (0-2); PLATELET COUNT 191 x10^3mcL (130-400); RED CELL DISTRIBUTION WIDTH 13.7 % (11.5-14.5)
[2018-02-24 08:13] LABS: CALCIUM 8.2 mg/dL (8.5-10.1); CARBON DIOXIDE 28.3 mmol/L (21-32); CHLORIDE SERUM 104 mmol/L (98-107); CREATININE SERUM 0.9 mg/dL (0.7-1.3); GFR1 > 60 mL/min; GLUCOSE SERUM 108 mg/dL (74-106); POTASSIUM SERUM 3.7 mmol/L (3.5-5.1); SODIUM SERUM 142 mmol/L (136-145)
[2018-02-24 08:31] LABS: T4(THYROXINE) 2.8 ug/dL (4.7-13.3)
[2018-02-24 09:48] VITALS: BP 100/54
[2018-02-24 13:54] VITALS: BP 104/56
[2018-02-24 17:37] VITALS: BP 119/76
[2018-02-24 21:22] VITALS: BP 130/73
[2018-02-25 04:27] LABS: RAPID PLASMA REAGIN Non Reactive (Non Reactive)
[2018-02-25 05:21] VITALS: BP 106/61
[2018-02-25 09:11] LABS: RHEUMATOID ARTHRITIS FACTOR <10.0 IU/mL (0.0-13.9)
[2018-02-25 09:39] VITALS: BP 132/70
[2018-02-25 14:12] VITALS: BP 132/81
[2018-02-25 16:03] VITALS: BP 132/81
[2018-02-25 18:11] VITALS: BP 117/69
== END 2018-02-25 20:59 | disposition home or self-care (01) | DRG 74 ==
LOC: ED 11:38 → DU 14:04
PROVIDERS: Emergency Medicine; Internal Medicine
DX: G50.0 Trigeminal neuralgia (principal); G45.9 Transient cerebral ischemic attack, unspecified; I69.351 Hemiplegia and hemiparesis following cerebral infarction affecting right dominant side; I10 Essential (primary) hypertension; F41.9 Anxiety disorder, unspecified; R73.9 Hyperglycemia, unspecified; N40.0 Benign prostatic hyperplasia without lower urinary tract symptoms
CPT/HCPCS: 83880; 86431; 97110-GP; J2550; J7030; J8540; J8597; Q0092; Q0163